=== PATIENT | male | born 2000 | race Caucasian/White ===

== ENCOUNTER 2024-11-30 16:33 | Emergency (ER) | payer OTHER ==
[~2024-11-30] VITALS: Ht 170.2 cm; Wt 75.8 kg
[2024-11-30] MEDS ORDERED: Morphine Sulfate 4 MG/1 ML Injection IV ONE ×3 (17:00→18:30)
[2024-11-30 17:03] LABS: BASOPHILS ABSOLUTE AUTO 0.06 K/mm3 (0.00-0.23); BASOPHILS PERCENT AUTO 1 % (0-2); EOSINOPHILS ABSOLUTE AUTO 0.18 K/mm3 (0.00-0.68); EOSINOPHILS PERCENT AUTO 2 % (0-6); Hematocrit 45.0 % (37.0-53.0); Hemoglobin 16.0 g/dL (13.5-17.5); IMMATURE GRAN ABSOLUTE AUTO 0.03 K/mm3 (0.00-0.10); IMMATURE GRAN PERCENT AUTO 0 % (0-1); LYMPHOCYTES ABSOLUTE AUTO 3.58 K/mm3 (0.84-5.20); LYMPHOCYTES PERCENT AUTO 31 % (21-46); MONOCYTES ABSOLUTE AUTO 1.04 K/mm3 (0.16-1.47); MONOCYTES PERCENT AUTO 9 % (4-13); Mean Corpuscular HGB Conc 35.6 g/dL (31.5-36.5); Mean Corpuscular Volume 84 fL (80-100); NEUTROPHILS ABSOLUTE AUTO 6.51 K/mm3 (1.96-9.15); NEUTROPHILS PERCENT AUTO 57 % (41-73); NRBC ABSOLUTE 0.00 K/mm3 (0.00-0.02); NRBC Auto 0.0 /100 WBC (0.0-0.2); Platelet Count 277 K/mm3 (150-400); RDW Coefficient Variation 11.6 % (11.7-14.2); RDW Standard Deviation 35.2 fL (35.1-46.3)
[2024-11-30 17:18] LABS: Anion Gap 8 mmol/L (3-11); Blood Urea Nitrogen 14 mg/dL (8-24); CO2, Blood 27 mmol/L (21-32); Calcium, Blood 9.8 mg/dL (8.5-10.1); Chloride, Blood 104 mmol/L (98-108); Creatinine, Blood 0.97 mg/dL (0.60-1.20); Ethanol (Alcohol), Blood, Med <3 mg/dL; Glucose, Blood 105 mg/dL (70-99); Potassium, Blood 3.5 mmol/L (3.5-5.5); Sodium, Blood 135 mmol/L (136-145)
[2024-11-30] MEDS ORDERED: Propofol 10mg/ml 20 ml Vial (Procedural) IV SCH (17:45)
[2024-11-30] MEDS ORDERED: NS 1,000 ML IV ONE (18:02)
[2024-11-30] MEDS ORDERED: Morphine Sulfate 4 MG/1 ML Injection ONE (18:11)
[2024-11-30] MEDS ORDERED: NS 1,000 ML IV SCH (18:30)
[2024-11-30] MEDS ORDERED: IBUP600 PO (19:25)
[2024-11-30] MEDS ORDERED: PERCOCET 10-321 EA13 PO (19:25)
[2024-11-30] MEDS ORDERED: ACET500 PO (19:25)
[2024-11-30] MEDS ORDERED: RX Prepack 6 Tabs Oxycodone 5mg UD ONE (19:35)
== END 2024-11-30 21:00 | disposition home or self-care (01) ==
LOC: ER 16:33
PROVIDERS: Emergency Medicine
DX: S82.852A Displaced trimalleolar fracture of left lower leg, initial encounter for closed fracture (principal); S41.111A Laceration without foreign body of right upper arm, initial encounter; W17.89XA Other fall from one level to another, initial encounter; Y99.0 Civilian activity done for income or pay; Z23 Encounter for immunization
CPT/HCPCS: 12002; 27818; 73070; 73600; 73610; 80048; 80320; 85025; 90471; 90715; 93005; 93010; 96374-59; 96376-59; 99285-25; A9270; J2270; J2704; J7030

== ENCOUNTER 2024-12-09 06:04 | Day surgery (SDC) | payer OTHER ==
[2024-12-09] VITALS (10 sets, daily range): BP systolic 128–166; BP diastolic 68–98
[~2024-12-09] VITALS: Ht 170.2 cm; Wt 76.5 kg
[~2024-12-09 06:04] MED LIST: ACET500 PO; IBUP600 PO; PERCOCET 10-321 EA13 PO
[2024-12-09] MEDS ORDERED: CeFAZolin Sodium 2,000 MG in NS 100 ML IV SCH (06:20)
[2024-12-09] MEDS ORDERED: Tranexamic Acid 100 ML IV SCH (06:20)
[2024-12-09] MEDS ORDERED: CeFAZolin Sodium 2,000 MG VIAL ONE (06:48)
--- NOTE | 2024-12-09 06:52 | NUR ---
History, Chart, Medications and Allergies reviewed before start of procedure. Lungs clear T/O to Auscultation. Patient confirms NPO status and agrees with scheduled surgery. Patient reports completing Chlorhexadine shower X2 prior to admission to hospital. Pre-Op teaching done. Pt verbalizes understanding.
[2024-12-09] MEDS ORDERED: Midazolam HCl 1MG / ML 2ML Vial ONE (06:58)
[2024-12-09] MEDS ORDERED: FentaNYL Citrate 50 MCG/ML 2 ML Injection ONE (06:58)
[2024-12-09] MEDS ORDERED: Sugammadex Sodium 200 MG/2ML SDV (100 MG/ML) ONE (06:58)
[2024-12-09] MEDS ORDERED: Bupivacaine 0.5% W/EPI 1:200000 SDV 30 ML Vial ONE (07:13)
[2024-12-09] MEDS ORDERED: HYDROmorphone HCl/Pf 1MG SYR ONE ×2 (07:55→08:47)
[2024-12-09] MEDS ORDERED: Metoclopramide HCl 5MG / ML 2ML Vial IV PRN (08:15)
[2024-12-09] MEDS ORDERED: HYDROmorphone HCl/Pf 1MG SYR IV PRN ×2 (08:15)
[2024-12-09] MEDS ORDERED: Ondansetron HCl 2 MG / ML 2ML Vial IV PRN (08:15)
[2024-12-09] MEDS ORDERED: Albuterol 2.5 MG/3 ML VIAL INH PRN (08:20)
[2024-12-09] MEDS ORDERED: FentaNYL Citrate 50 MCG/ML 2 ML Injection IV PRN ×2 (08:20)
[2024-12-09] MEDS ORDERED: Lidocaine 1%-Epineph 1:200000 30 ML SDV ONE (09:57)
[2024-12-09] MEDS ORDERED: Ketorolac Tromethamine 30mg Vial ONE (11:01)
--- NOTE | 2024-12-09 12:08 | NUR ---
PT DOING WELL MEDICATED WITH OXY 5MG AT 1145 PT REPORTS PAIN IS WELL CONTROLLED NO N/V
--- NOTE | 2024-12-09 12:18 | NUR ---
VSS PT DOING WELL PAIN CONTROLLED NO N/V MEDICATEED FOR PAIN X 1 WITH 5MG OXYCODONE. Discharge instructions reviewed with patient. Patient verbalizes understanding. Copy given to patient to take home. Patient States Post-Procedure ride home has been arranged. Discharged via wheelchair to private car for ride home.
[2024-12-09] MEDS ORDERED: Bupivacaine 0.5% HCl 5 MG/ML 30MLVIAL ONE (13:14)
== END 2024-12-09 23:00 | disposition home or self-care (01) ==
LOC: ORSCMMR 06:04
PROVIDERS: Orthopaedic Surgery Sports Medicine
PROC: 0QSH04Z Reposition Left Tibia with Internal Fixation Device, Open Approach (ICD-10-PCS; principal; 2024-12-09 07:30)
PROC: 0QSK04Z Reposition Left Fibula with Internal Fixation Device, Open Approach (ICD-10-PCS; principal; 2024-12-09 07:30)
DX: S82.852A Displaced trimalleolar fracture of left lower leg, initial encounter for closed fracture (principal); W17.89XA Other fall from one level to another, initial encounter
CPT/HCPCS: A9270; C1713; J0690; J1171; J1885; J2250; J2704; J3010; J7120